=== PATIENT | female | born 1975 | race Two or more races ===

== ENCOUNTER 2021-03-30 11:30 | Inpatient (IN) | payer OTHER ==
[~2021-03-30] VITALS: Ht 160 cm; Wt 70.8 kg
[2021-04-06] MEDS ORDERED: OMEPRAZOLE40 MG (08:22)
[2021-04-25] MEDS ORDERED: INTESTINEX680 M1 PO (08:22)
[2021-04-25] MEDS ORDERED: ULTRAM50 MG PO (08:25)
== END 2021-04-25 10:06 | disposition home or self-care (01) | DRG 329 ==
LOC: O/R 04-05 05:45 → SURH 04-05 11:30
PROVIDERS: ADMIT Surgery; ATTEND Surgery
PROC: 0DTP4ZZ Resection of Rectum, Percutaneous Endoscopic Approach (ICD-10-PCS; 2021-04-05)
PROC: 07BC4ZX Excision of Pelvis Lymphatic, Percutaneous Endoscopic Approach, Diagnostic (ICD-10-PCS; 2021-04-05)
PROC: 0DJD8ZZ Inspection of Lower Intestinal Tract, Via Natural or Artificial Opening Endoscopic (ICD-10-PCS; 2021-04-05)
PROC: 0DBN4ZZ Excision of Sigmoid Colon, Percutaneous Endoscopic Approach (ICD-10-PCS; principal; 2021-04-05 22:00)
PROC: 02HV33Z Insertion of Infusion Device into Superior Vena Cava, Percutaneous Approach (ICD-10-PCS; 2021-04-08)
PROC: 0W9G30Z Drainage of Peritoneal Cavity with Drainage Device, Percutaneous Approach (ICD-10-PCS; 2021-04-10)
DX: C19 Malignant neoplasm of rectosigmoid junction (principal); K65.1 Peritoneal abscess; K56.7 Ileus, unspecified; K91.870 Postprocedural hematoma of a digestive system organ or structure following a digestive system procedure; T81.43XA Infection following a procedure, organ and space surgical site, initial encounter; D64.9 Anemia, unspecified; Y83.8 Other surgical procedures as the cause of abnormal reaction of the patient, or of later complication, without mention of misadventure at the time of the procedure

== ENCOUNTER 2021-04-03 11:47 | Day surgery (SDC) | payer OTHER | END 2021-04-03 15:40 | disposition home or self-care (01) | LOC: AMB-ENDOS 11:47 | PROVIDERS: ATTEND Surgery | DX: C18.7 Malignant neoplasm of sigmoid colon (principal); Z20.822 Contact with and (suspected) exposure to COVID-19 ==

== ENCOUNTER 2021-11-07 07:03 | Day surgery (SDC) | payer OTHER ==
[~2021-11-07 07:03] MED LIST: INTESTINEX680 M1 PO; LEVOTHYROXINE25 MCG PO; OMEPRAZOLE40 MG; ULTRAM50 MG PO
== END 2021-11-07 16:20 | disposition home or self-care (01) ==
LOC: EDBD → CIR.AMB 07:03
PROVIDERS: ATTEND Specialist
DX: C19 Malignant neoplasm of rectosigmoid junction (principal); Z20.822 Contact with and (suspected) exposure to COVID-19
CPT/HCPCS: 36561; C1751

== ENCOUNTER 2024-08-04 07:52 | Day surgery (SDC) | payer OTHER ==
[2024-07-31 09:15] VITALS: BP 114/72
[2024-07-31 09:23] LABS: PH,URINE 5.5 (5.0-8.0); URINE APPEARANCE Clear; URINE BILIRRUBIN Negative (NEGATIVE); URINE BLOOD Negative; URINE COLOR Yellow; URINE GLUCOSE Negative (NEGATIVE); URINE KETONE Negative (NEGATIVE); URINE LEUKOCYTE Negative; URINE NITRATE Negative; URINE PROTEIN Negative (NEGATIVE); URINE UROBILINOGEN 0.2 E.U./dl
[2024-07-31 09:28] LABS: URINE BACTERIA 195.2 uL (0.0-1933); URINE RBC 2.1 uL (0.0-20.8); URINE WBC 1.8 uL (0.0-23.2)
[2024-07-31 09:29] LABS: HEMATOCRIT 39.4 % (36.0-45.00); HEMOGLOBIN 13.3 g/dL (12.0-15.00); MEAN CELL VOLUME 80.5 fL (80.00-100.00); MEAN CORPUSCULAR HEMOGLOBIN 27.2 pg (27.00-32.0); MEAN CORPUSCULAR HGB CONC 33.8 g/dl (32.0-36.0); PLATELET COUNT 386 K/uL (150-450); RED BLOOD COUNT 4.89 M/uL (4.00-6.00); RED CELL DISTRIBUTION WIDTH 14.6 % (11.5-14.5)
[2024-07-31 10:19] LABS: INR 1.01; PARTIAL THROMBOPLASTIN TIME 28.9 SECONDS (22.0-34.0)
[2024-07-31 10:49] LABS: ALBUMIN 4.1 gm/dL (3.4-5.0); BILIRUBIN TOTAL 0.34 mg/dL (0.3-1.2); CALCIUM 9.8 mg/dL (8.5-10.1); CREATININE SERUM 0.81 mg/dL (0.55-1.02); GFR 76.12; GLOBULINA 3.8 G/DL (2.4-3.5); POTASSIUM 4.28 mEq/L (3.5-5.1); TOTAL PROTEIN 7.9 gm/dL (6.4-8.2); TSH 1.15 uIU/mL (0.358-3.74)
[~2024-08-04] VITALS: Ht 160 cm; Wt 73.9 kg
[2024-08-04] MEDS ORDERED: FAMOTIDINE/PF 20 MG/10 ML SYRINGE IV SCH (14:00)
== END 2024-08-04 15:20 | disposition home or self-care (01) ==
LOC: CIR.AMB 07:52
PROVIDERS: ATTEND Specialist
DX: T82.594A Other mechanical complication of infusion catheter, initial encounter (principal); C19 Malignant neoplasm of rectosigmoid junction; Z88.6 Allergy status to analgesic agent; Z88.5 Allergy status to narcotic agent; E03.8 Other specified hypothyroidism